=== PATIENT | female | born 1960 | race Hispanic/Latino ===

== ENCOUNTER 2020-12-22 12:50 | Outpatient (CLI) | payer MEDICARE, MEDICAID | END 2020-12-22 12:51 | disposition home or self-care (01) | LOC: CSHRAD 12:50 | PROVIDERS: ATTEND Orthopaedic Surgery | DX: M54.2 Cervicalgia (principal); M47.812 Spondylosis without myelopathy or radiculopathy, cervical region | CPT/HCPCS: 72040 ==